=== PATIENT | male | born 1965 | race Caucasian/White ===

== ENCOUNTER 2019-05-25 03:20 | Emergency (ER) | payer BC, OTHER ==
[~2019-05-25] VITALS: Ht 162.6 cm; Wt 79.7 kg
[2019-05-25 03:31] VITALS: Ht 162.6 cm; Wt 79.7 kg
[2019-05-25] MEDS ORDERED: SOD CHLORIDE 0.9% 1,000 ML IV STA (04:08)
[2019-05-25] MEDS ORDERED: ONDANSETRON 4 MG INJ IV STA (04:08)
[2019-05-25] MEDS ORDERED: KETOROLAC 15 MG INJ IV STA (04:08)
[2019-05-25] MEDS ORDERED: OMEP20CA16 PO (06:07)
[2019-05-25] MEDS ORDERED: NAPR-985 PO (06:07)
[2019-05-25 06:20] VITALS: BP 131/79; PULSE 62; RESP 18
--- NOTE | 2019-05-27 19:28 | ERD ---
ER Documentation Chief Complaint Chief Complaint abdominal pain since started 7 months ago, worsening pain today 08/24. HPI 53-year-old male with past medical history of hypertension presents to the emergency department complaining of localized, constant, 9/10 severity, right upper quadrant pain for 1 day. Associated symptoms include nausea. He denies any lower quadrant abdominal pain, vomiting, diarrhea, fevers, chills, or other symptoms at this time. ROS All systems reviewed and are negative except as per history of present illness. Medications Home Meds Active Scripts Omeprazole* (Omeprazole*) 20 Mg Capsule.dr, 20 MG PO DAILY, #20 Prov:HARSH PADILLA PA-C 05/25/19 Naproxen* (Naprosyn*) 500 Mg Tablet, 500 MG PO BID PRN for PAIN AND/OR I NFLAMMATION, #30 TAB Prov:HARSH PADILLA PA-C 05/25/19 Allergies Allergies: Coded Allergies: No Known Allergy (Unverified , 05/25/19) PMhx/Soc Medical and Surgical Hx: pt denies Medical Hx, pt denies Surgical Hx Hx Alcohol Use: No Hx Substance Use: No Hx Tobacco Use: No Smoking Status: Never smoker FmHx Family History: No diabetes Physical Exam Vitals Vital Signs Date Temp Pulse Resp B/P (MAP) Pulse Ox O2 O2 Flow FiO2 Time Delivery Rate 05/25/19 97.8 62 18 131/79 100 Room Air 06:20 (96) 05/25/19 98.2 80 16 160/91 97 03:31 (114) Physical Exam Const: No acute distress Head: Atraumatic Eyes: Normal Conjunctiva ENT: Normal External Ears, Nose and Mouth. Neck: Full range of motion. No meningismus. Resp: Clear to auscultation bilaterally Cardio: Regular rate and rhythm, no murmurs Abd: Soft, mild tenderness palpation of the right upper quadrant, negative Carey sign, no McBurney's point tenderness, no rebound tenderness or guarding non distended. Normal bowel sounds Skin: No petechiae or rashes Back: No midline or flank tenderness Ext: No cyanosis, or edema Neur: Awake and alert Psych: Normal Mood and Affect Result Diagram: 05/25/1942005/25/19420 Results 24 hrs Laboratory Tests Test 05/25/19 04:21 White Blood Count 4.8 10^3/ul Red Blood Count 5.06 10^6/ul Hemoglobin 15.1 g/dl Hematocrit 43.5 % Mean Corpuscular Volume 86.0 fl Mean Corpuscular Hemoglobin 29.8 pg Mean Corpuscular Hemoglobin Concent 34.7 g/dl Red Cell Distribution Width 12.2 % Platelet Count 261 10^3/UL Mean Platelet Volume 8.9 fl Immature Granulocytes % 0.200 % Neutrophils % 44.6 % Lymphocytes % 32.1 % Monocytes % 10.7 % Eosinophils % 11.8 % Basophils % 0.6 % Nucleated Red Blood Cells % 0.0 /100WBC Immature Granulocytes # 0.010 10^3/ul Neutrophils # 2.1 10^3/ul Lymphocytes # 1.5 10^3/ul Monocytes # 0.5 10^3/ul Eosinophils # 0.6 10^3/ul Basophils # 0.0 10^3/ul Nucleated Red Blood Cells # 0.0 10^3/ul Prothrombin Time 12.6 Sec Prothrombin Time Ratio 1.0 INR International Normalized Ratio 0.93 Activated Partial Thromboplast Time 29.1 Sec Urine Color STRAW Urine Clarity CLEAR Urine pH 7.0 Urine Specific [place] 1.017 Urine Ketones NEGATIVE mg/dL Urine Nitrite NEGATIVE mg/dL Urine Bilirubin NEGATIVE mg/dL Urine Urobilinogen NEGATIVE mg/dL Urine Leukocyte Esterase NEGATIVE Vincent/ul Urine Hemoglobin NEGATIVE mg/dL Urine Glucose NEGATIVE mg/dL Urine Total Protein NEGATIVE mg/dl Sodium Level 144 mmol/L Potassium Level 3.9 mmol/L Chloride Level 106 mmol/L Carbon Dioxide Level 28 mmol/L Anion Gap 10 Blood Urea Nitrogen 23 mg/dl Creatinine 0.78 mg/dl Est Glomerular Filtrat Rate mL/min > 60 mL/min Glucose Level 114 mg/dl Calcium Level 9.4 mg/dl Total Bilirubin 0.5 mg/dl Direct Bilirubin 0.00 mg/dl Indirect Bilirubin 0.5 mg/dl Aspartate Amino Transf (AST/SGOT) 36 IU/L Alanine Aminotransferase (ALT/SGPT) 42 IU/L Alkaline Phosphatase 77 IU/L Total Protein 7.3 g/dl Albumin 4.3 g/dl Globulin 3.00 g/dl Albumin/Globulin Ratio 1.43 Lipase 76 U/L Current Medications Medications Dose Sig/Osvaldo Start Time Status Last (Trade) Ordered Route PRN Stop Time Admin Dose Reason Admin Sodium 1,000 ml @ Q1H STAT 7/11/19 DC 05/25/19 Chloride 1,000 mls/hr IV 04:08 04:39 05/25/19 05:07 Ondansetron 4 mg ONCE STAT 05/25/19 DC 05/25/19 HCl (Zofran IV 04:08 04:39 Inj) 05/25/19 04:09 Ketorolac 15 mg ONCE STAT 05/25/19 DC 05/25/19 Tromethamine IV 04:08 04:40 (Toradol) 05/25/19 04:09 [place] [address] Radiology Main Line: [phone] DIAGNOSTIC IMAGING REPORT Patient: SUSAN MCMILLAN : 1965 Age: 53 Sex: M MR #: [id number] DOS: 05/25/19 0408 Ordering MD: HARSH PADILLA PA-C Location: [facility] Room/Bed: PROCEDURE: US Abdomen. CLINICAL INDICATION: Pain TECHNIQUE: Multiple real-time images were acquired of the patient's abdomen and retroperitoneum utilizing a high resolution transducer. COMPARISON: None FINDINGS: Pancreas was not visualized due to overlying bowel gas. No evidence of cholelithiasis or gallbladder wall thickening. No pericholecystic fluid. Common bile duct normal limits in size maximal transverse diameter 3.39 mm. No intrahepatic biliary ductal dilation. Liver normal in size maximal sagittal d imension 13.91 cm. Normal liver parenchymal echogenicity without focal lesion. Normal portal venous flow. Right kidney normal in size maximal sagittal mention 11.89 cm. Normal right renal parenchymal echogenicity without hydronephrosis intra renal mass or calculus. IMPRESSION: 1. No evidence of cholelithiasis gallbladder wall thickening and negative ultrasonic Carey's sign. 2. Unremarkable liver and right kidney. 3. Inability to visualize the pancreas due to overlying bowel gas. RPTAT:AAJJ Physician Heidi Date Time Electronically viewed and signed by Physician Heidi on 05/25/2019 05:47 BM/ CC: RANDYHARSH Iglesia CAPPS [phone] Procedures/MDM This patient is a 53-year-old male presenting to the emergency department complaining of intermittent right upper quadrant pain. There is no leukocytosis or anemia noted on CBC. Patient's CMP is within normal limits. No evidence of electrolyte disturbance, liver or kidney dysfunction. Urinalysis showed no evidence of urinary tract infection. Patient was afebrile, nontoxic, well- appearing. He was improved in the department after administration of IV Toradol and Zofran and fluids. No evidence to suggest acute cholecystitis, acute appendicitis, bowel obstruction, sepsis, serious bacterial infection, or other emergencies. Patient symptoms are likely secondary to musculoskeletal cause, GERD, or non-emergent pathology. Patient is stable and appropriate for discharge and further outpatient management with prescriptions. He was in agreement with the diagnosis, plan, need for follow-up, return precautions. He was advised to return here immediately for any new or worsening or concerning symptoms. Patient's blood pressure was elevated (>120/80) but appears stable without evidence of hypertension emergency or urgency. The patient is to follow-up and pursue outpatient monitoring and therapy with their primary care physician within 1 week and return immediately if they have any new, worsening, or concerning symptoms. Departure Diagnosis: Primary Impression: Abdominal pain Condition: Fair Patient Instructions: Abdominal Pain Referrals: [facility] YOU HAVE RECEIVED A MEDICAL SCREENING EXAM AND THE RESULTS INDICATE THAT YOU DO NOT HAVE A CONDITION THAT REQUIRES URGENT TREATMENT IN THE EMERGENCY DEPARTMENT. FURTHER EVALUATION AND TREATMENT OF YOUR CONDITION CAN WAIT UNTIL YOU ARE SEEN IN YOUR DOCTORS OFFICE WITHIN THE NEXT 1-2 DAYS. IT IS YOUR RESPONSIBILITY TO MAKE AN APPOINTMENT FOR FOL-UP CARE. IF YOU HAVE A PRIMARY DOCTOR --you should call your primary doctor and schedule an appointment IF YOU DO NOT HAVE A PRIMARY DOCTOR YOU CAN CALL OUR PHYSICIAN REFERRAL HOTLINE AT IF YOU CAN NOT AFFORD TO SEE A PHYSICIAN YOU CAN CHOSE FROM THE FOLLOWING [facility] [address] [facility] [address] [facility] [facility] [address] [facility]. [facility] [address] [facility]. [facility]. [address] Additional Instructions: Llame al doctor MAANA y corazon kang YAZ PARA DENTRO DE 1-2 BRIDGES.Dgale a la secretaria que nosotros le instruimos hacer esta yaz.Avise o llame si grubbs condicin se empeora antes de la yaz. Regresa aqui si peor o no mejor. HARSH PADILLA PA-C May 27, 2019 19:28
== END 2019-05-25 06:20 | disposition home or self-care (01) ==
LOC: FTE 03:20
DX: R10.11 Right upper quadrant pain (principal); I10 Essential (primary) hypertension
CPT/HCPCS: 36415; 76705; 80053; 81003; 83690; 85025; 85610; 85730; 96361; 96374; 96375; 99285; J1885; J2405; J7030